=== PATIENT | female | born 1935 | race American Indian/Alaskan Native ===

== ENCOUNTER 2017-12-30 11:32 | Observation (INO) | payer OTHER ==
--- NOTE | 2017-12-30 12:39 | EKG ---
Test Reason : Blood Pressure : / mmHG Vent. Rate : 073 BPM Atrial Rate : 073 BPM P-R Int : 132 ms QRS Dur : 080 ms QT Int : 386 ms P-R-T Axes : 049 -46 022 degrees QTc Int : 425 ms NORMAL SINUS RHYTHM LEFT ANTERIOR FASCICULAR BLOCK SEPTAL INFARCT , AGE UNDETERMINED ABNORMAL ECG WHEN COMPARED WITH ECG OF 02-JUL-2011 09:31, SEPTAL INFARCT IS NOW PRESENT T WAVE VARIATION Confirmed by HINA MCCLURE, DELIA ([id number]) on 12/30/2017 12:39:30 PM Referred By: Confirmed By:DELIA SANTAMARIA MD
[2017-12-30 12:42] LABS: BASO % 0.8 % (0-2.0); HEMATOCRIT 40.7 % (32.4-45.2); LYMPH % 25.5 % (8-40); MCH 32.5 pg (25.7-33.7); MCHC 34.5 g/dl (32.0-36.0); MEAN CELL VOLUME 94.3 fl (80-96); NEUT % 62.7 % (42.8-82.8); RBC 4.31 M/mm3 (3.60-5.2); RDW 13.7 % (11.6-15.6); WHITE BLOOD COUNT 7.2 K/mm3 (4.0-10.0)
[2017-12-30 12:44] LABS: INR 0.88 (0.82-1.09)
[2017-12-30 12:48] LABS: ALBUMIN 3.3 g/dl (3.4-5.0); ANION GAP 5 (8-16); BILIRUBIN,TOTAL 0.7 mg/dL (0.2-1.0); BLOOD UREA NITROGEN 12 mg/dL (7-18); CALCIUM 9.9 mg/dL (8.5-10.1); CHLORIDE 110 mmol/L (98-107); CO2 26 mmol/L (21-32); CREATININE 0.7 mg/dL (0.55-1.02); GLUCOSE,RANDOM 88 mg/dL (74-106); SGPT/ALT 26 U/L (12-78); SODIUM 141 mmol/L (136-145); TOT PROT 6.9 g/dl (6.4-8.2)
[2017-12-30 12:51] LABS: ALK PHOS 112 U/L (45-117)
[2017-12-30 12:52] LABS: MAGNESIUM 2.5 mg/dL (1.8-2.4); POTASSIUM 5.1 mmol/L (3.5-5.1); SGOT/AST 29 U/L (15-37)
[2017-12-30 13:42] LABS: MEAN PLT VOLUME 7.2 fl (7.5-11.1); PLATELET COUNT 298 K/MM3 (134-434)
--- NOTE | 2017-12-30 13:49 | PDOC ---
History of Present Illness - General History Source: Patient Exam Limitations: Language Barrier, Other - History of Present Illness Initial Comments: 12/30/17 14:00 The patient is a 82 year old female, with a significant past medical history of hypertension, worsening dementia, who presents to the emergency department from [facility] s/p syncopal episode. Per EMS patient passed out at [facility]. Unknown whether patient hit her head, has a headache, dizziness, lightheadedness , changes in vision, nausea, vomiting, or any pain. Patients history is limited as she is nonverbal. <Joshua Baxter - Last Filed: 12/30/17 14:55> <Vni Lynn - Last Filed: 12/30/17 15:02> - General Chief Complaint: Syncope/Near Syncope Stated Complaint: SYNCOPE Time Seen by Provider: 12/30/17 11:56 Past History <Joshua Baxter - Last Filed: 12/30/17 14:55> - Suicide/Smoking/Psychosocial Hx Smoking History: Unknown if ever smoked <Vin Lynn - Last Filed: 12/30/17 15:02> - Past Medical History Allergies/Adverse Reactions: Allergies Allergy/AdvReac Type Severity Reaction Status Date / Time No Allergy Information Allergy Verified 12/30/17 11:56 Available Home Medications: Ambulatory Orders Amlodipine Besylate 2.5 mg PO DAILY 12/30/17 Atorvastatin Calcium 20 mg PO HS 12/30/17 Review of Systems - Review of Systems Able to Perform ROS?: No Comments:: 12/30/17 14:00 Unable to perform ROS, as patient is nonverbal. <Joshua Baxter - Last Filed: 12/30/17 14:55> - Review of Systems Able to Perform ROS?: No <Vin Lynn - Last Filed: 12/30/17 15:02> *Physical Exam - Vital Signs Last Vital Signs Temp Pulse Resp BP Pulse Ox 97.5 F L 62 18 134/63 97 12/30/17 11:56 12/30/17 11:56 12/30/17 11:56 12/30/17 11:56 12/30/17 11:56 - Physical Exam Comments: 12/30/17 14:00 GENERAL: The patient is awake, drowsy, and orientedx0, in no acute distress. HEAD: Normal with no signs of trauma. EYES: Pupils equal, round and reactive to light, extraocular movements intact, sclera anicteric, conjunctiva clear with no pallor. ENT: Ears normal, nares patent, oropharynx clear without exudates. Moist mucous membranes. NECK: Normal range of motion, supple without lymphadenopathy, JVD, or masses. LUNGS: Breath sounds equal, clear to auscultation bilaterally. No wheeze/ crackles. HEART: Regular rate and rhythm, normal S1 and S2 without murmur or rub. ABDOMEN: Soft/nontender/nondistended. BS wnl. No guarding or rebound. No palpable masses. No hepatosplenomegaly. EXTREMITIES: Normal range of motion, no edema. No clubbing or cyanosis. No cords, erythema, or tenderness. NEUROLOGICAL: Diffuse nonfocal weakness. Non verbal Cranial nerves II through XII grossly intact. SKIN: Warm, Dry, normal turgor, no rashes or lesions noted. <Joshua Baxter - Last Filed: 12/30/17 14:55> - Vital Signs Last Vital Signs Temp Pulse Resp BP Pulse Ox 97.5 F L 62 18 134/63 97 12/30/17 11:56 12/30/17 11:56 12/30/17 11:56 12/30/17 11:56 12/30/17 11:56 <Vin Lynn - Last Filed: 12/30/17 15:02> Heart Score/ECG Review #1 ECG reviewed & interpreted by me at: 11:47 General ECG Interpretation: Sinus Rhythm, Normal Rate (73), Normal Intervals ( LAFB, QTC 425), No acute ischemic changes (T wave flattening V4-V6) <Vin Lynn - Last Filed: 12/30/17 15:02> ED Treatment Course - LABORATORY CBC & Chemistry Diagram: 12/30/17 12:04 12/30/17 12:04 - ADDITIONAL ORDERS Additional order review: Laboratory Results 12/30/17 12/30/17 12:04 12:04 PT with INR 10.00 INR 0.88 Sodium 141 Potassium 5.1 Chloride 110 H Carbon Dioxide 26 Anion Gap 5 L BUN 12 Creatinine 0.7 Creat Clearance w eGFR > 60 Random Glucose 88 Calcium 9.9 Magnesium 2.5 H Total Bilirubin 0.7 AST 29 ALT 26 Alkaline Phosphatase 112 Creatine Kinase 96 Troponin I 0.03 Total Protein 6.9 Albumin 3.3 L 12/30/17 12:04 RBC 4.31 MCV 94.3 MCHC 34.5 RDW 13.7 MPV 7.2 L Neutrophils % 62.7 Lymphocytes % 25.5 Monocytes % 6.0 Eosinophils % 5.0 H Basophils % 0.8 - RADIOLOGY Radiograph Interpretation: 12/30/17 14:04 EXAM: Head CT INTERPRETED BY: Dr. Handley REVIEWED BY: Dr. Lynn IMPRESSION: No definite interval change from 07/01/[address] No acute intracranial hemorrhage, mass effects or hydrocephalus. No compelling evidence of acute transcortical infarction at this time. MRI is more sensitive in detecting acute infarctions. Generalized, age appropriate volume loss and mild to moderate microvascular ischemic changes in the cerebral white matter. EXAM: CXR INTERPRETED BY: Dr. Reeves REVIEWED BY: Dr. Lynn IMPRESSION: No acute pathology. <Joshua Baxter - Last Filed: 12/30/17 14:55> - LABORATORY CBC & Chemistry Diagram: 12/30/17 12:04 12/30/17 12:04 - ADDITIONAL ORDERS Additional order review: Laboratory Results 12/30/17 12/30/17 12:04 12:04 PT with INR 10.00 INR 0.88 Sodium 141 Potassium 5.1 Chloride 110 H Carbon Dioxide 26 Anion Gap 5 L BUN 12 Creatinine 0.7 Creat Clearance w eGFR > 60 Random Glucose 88 Calcium 9.9 Magnesium 2.5 H Total Bilirubin 0.7 AST 29 ALT 26 Alkaline Phosphatase 112 Creatine Kinase 96 Troponin I 0.03 Total Protein 6.9 Albumin 3.3 L 12/30/17 12:04 RBC 4.31 MCV 94.3 MCHC 34.5 RDW 13.7 MPV 7.2 L Neutrophils % 62.7 Lymphocytes % 25.5 Monocytes % 6.0 Eosinophils % 5.0 H Basophils % 0.8 - RADIOLOGY Radiology Studies Ordered: Category Date Time Status HEAD CT WITHOUT CONTRAST [CT] Stat CT Scan 12/30/17 12:28 Taken CHEST X-RAY PORTABLE* [RAD] Stat Radiology 12/30/17 11:57 Completed <Vin Lynn - Last Filed: 12/30/17 15:02> Medical Decision Making - Medical Decision Making 12/30/17 14:56 First call placed to Dr. Reed at 14:54. Case discussed at this time. Will admit to Tele Obs under Dr. Reed. <Joshua Baxter - Last Filed: 12/30/17 14:55> - Medical Decision Making 12/30/17 14:02 A portion of this note was documented by scribe services under my direction. I have reviewed the details of the note, within reason, and agree with the documentation with the following case summary and management plan written by me. 82-year-old female with unclear medical history brought from [facility] for near syncope. Seeking official signout/documentation from the residential at this time, no prior records in our system, patient is nonverbal. Initial workup including labs, EKG, CT head, and chest x-ray all showed no acute abnormalities. Pending urinalysis, we'll straight catheter to rule out UTI. Patient presenting with nonspecific generalized weakness/lightheadedness, question whether there is altered mental status. Attempting to obtain baseline from staff/family, but no response thus far. 12/30/17 15:00 UA normal. Given near syncope, will place on tele obs for cardiac monitoring. Accepted for obs tele by Dr. Reed, admitting for [facility]. <Vin Lynn - Last Filed: 12/30/17 15:02> *DC/Admit/Observation/Transfer - Attestations Scribe Attestion: 12/30/17 14:01 Documentation prepared by Joshua Baxter, acting as medical doctor md/medical director for Vin Lynn MD. <Joshua Baxter - Last Filed: 12/30/17 14:55> - Discharge Dispostion Admit: Yes <Vin Lynn - Last Filed: 12/30/17 15:02> Diagnosis at time of Disposition: Lightheaded - Referrals Referrals: Robert Cifuentes [Primary Care Provider] - - Patient Instructions - Post Discharge Activity
[2017-12-30 14:35] LABS: URINE APPEARANCE CLOUDY; URINE BILIRUBIN NEGATIVE (<2.0 mg/dL); URINE COLOR LTYELLOW; URINE GLUCOSE (UA) NEGATIVE (NEGATIVE); URINE KETONE NEGATIVE (NEGATIVE); URINE LEUK ESTERASE NEGATIVE (NEGATIVE); URINE NITRITE NEGATIVE (NEGATIVE); URINE PROTEIN NEGATIVE (NEGATIVE); URINE UROBILINOGEN NEGATIVE mg/dL (0.2-1.0)
[2017-12-30] MEDS ORDERED: ACETAMINOPHEN 325 MG TABLET (FP) PO PRN (17:13)
--- NOTE | 2017-12-30 17:54 | HP ---
Admitting History and Physical - Primary Care Physician PCP: He Reed - Admission Chief Complaint: syncopal History of Present Illness: Er records reviewed/ discussed with er physician. The patient is a 82 year old female, with a significant past medical history of hypertension, worsening dementia, who presents to the emergency department from [facility] s/p syncopal episode. Per EMS patient passed out at [facility]. Unknown whether patient hit her head, has a headache, dizziness, lightheadedness , changes in vision, nausea, vomiting, or any pain. Patients history is limited as she is nonverbal. work up -ve in er pt will be kept for observation. Pt seen in er comfortable. no distress. not speaking History Source: Medical Record Limitations to Obtaining History: Clinical Condition - Smoking History Smoking history: Unknown if ever smoked Home Medications - Allergies Allergies/Adverse Reactions: Allergies Allergy/AdvReac Type Severity Reaction Status Date / Time No Allergy Information Allergy Verified 12/30/17 11:56 Available - Home Medications Home Medications: Ambulatory Orders Amlodipine Besylate 2.5 mg PO DAILY 12/30/17 Atorvastatin Calcium 20 mg PO HS 12/30/17 Review of Systems Unable to obtain ROS, reason: condition Physical Examination Vital Signs: Vital Signs Temperature 97.5 F L 12/30/17 11:56 Pulse Rate 62 12/30/17 11:56 Respiratory Rate 18 12/30/17 11:56 Blood Pressure 134/63 12/30/17 11:56 O2 Sat by Pulse Oximetry (%) 97 12/30/17 11:56 Constitutional: Yes: No Distress, Calm Eyes: Yes: Conjunctiva Clear Neck: Yes: Supple Cardiovascular: Yes: Regular Rate and Rhythm Respiratory: Yes: CTA Bilaterally Gastrointestinal: Yes: Soft Edema: No Neurological: Yes: Other (awake) Labs: CBC, BMP 12/30/17 12:04 12/30/17 12:04 Imaging - Results Chest X-ray: Report Reviewed Cat Scan: Report Reviewed EKG: Report Reviewed Problem List - Problems (1) Syncope Code(s): R55 - SYNCOPE AND COLLAPSE (2) Dementia Code(s): F03.90 - UNSPECIFIED DEMENTIA WITHOUT BEHAVIORAL DISTURBANCE (3) Hypertension Code(s): I10 - ESSENTIAL (PRIMARY) HYPERTENSION Assessment/Plan Monitor on non cardiac tele overnight fall precautions physical therapy dvt prophylaxis add asa check carotid will follow
[2017-12-30] MEDS: ASPIRIN COATED 81 MG TABLET.EC PO SCH (18:10)
[2017-12-30] MEDS ORDERED: ACETAMINOPHEN 325 MG TABLET (FP) ONE (19:46)
[2017-12-30] MEDS ORDERED: ATORVASTATIN CA 20 MG TABLET (FP) PO SCH (22:00)
[2017-12-30] MEDS ORDERED: HEPARIN NA (PORCINE) 5,000 UNITS/ML 1ML VIAL ONE (22:03)
[2017-12-30] MEDS ORDERED: ATORVASTATIN CA 40 MG TABLET (FP) ONE (22:03)
[2017-12-30] MEDS: HEPARIN NA (PORCINE) 5,000 UNITS/ML 1ML VIAL SQ SCH (22:07)
[2017-12-31 00:19] VITALS: BMI 20.7
[2017-12-31 06:56] LABS: EOS % 8.8 % (0-4.5); HEMATOCRIT 36.6 % (32.4-45.2); HEMOGLOBIN 12.8 GM/dL (10.7-15.3); LYMPH % 31.8 % (8-40); MCH 32.5 pg (25.7-33.7); MEAN PLT VOLUME 6.6 fl (7.5-11.1); NEUT % 51.4 % (42.8-82.8); PLATELET COUNT 320 K/MM3 (134-434); RBC 3.94 M/mm3 (3.60-5.2); RDW 13.3 % (11.6-15.6); WHITE BLOOD COUNT 5.6 K/mm3 (4.0-10.0)
[2017-12-31 07:16] LABS: ANION GAP 6 (8-16); BLOOD UREA NITROGEN 15 mg/dL (7-18); CALCIUM 9.8 mg/dL (8.5-10.1); CHLORIDE 112 mmol/L (98-107); CO2 26 mmol/L (21-32); CREATININE 0.8 mg/dL (0.55-1.02); GLUCOSE,RANDOM 103 mg/dL (74-106); POTASSIUM 3.7 mmol/L (3.5-5.1); SGOT/AST 14 U/L (15-37); SGPT/ALT 20 U/L (12-78); SODIUM 144 mmol/L (136-145)
[2017-12-31 07:18] LABS: ALK PHOS 97 U/L (45-117); BILIRUBIN,TOTAL 0.7 mg/dL (0.2-1.0); TOT PROT 5.9 g/dl (6.4-8.2)
[2017-12-31] MEDS ORDERED: amLODIPine BESYLATE 2.5 MG TABLET (FP) PO SCH (10:00)
[2017-12-31] MEDS: HEPARIN NA (PORCINE) 5,000 UNITS/ML 1ML VIAL SQ SCH (11:06)
[2017-12-31] MEDS: ASPIRIN COATED 81 MG TABLET.EC PO SCH (11:06)
--- NOTE | 2017-12-31 12:17 | DS ---
Physical Examination Vital Signs: Vital Signs Temperature 98.2 F 12/31/17 05:05 Pulse Rate 80 12/31/17 08:54 Respiratory Rate 18 12/31/17 08:54 Blood Pressure 144/90 12/31/17 08:54 O2 Sat by Pulse Oximetry (%) 97 12/31/17 03:00 Constitutional: Yes: No Distress Cardiovascular: Yes: Regular Rate and Rhythm Respiratory: Yes: CTA Bilaterally Gastrointestinal: Yes: Normal Bowel Sounds, Soft. No: Tenderness Edema: No Labs: CBC, BMP 12/31/17 06:30 12/31/17 06:30 Discharge Summary Reason For Visit: LIGHTHEADNESS Current Active Problems Dementia (Acute) Hypertension (Acute) Lightheaded (Acute) Syncope (Acute) Hospital Course: Admitted for lightheadedness CT head negative Carotid doppler negative Tele uneventful pt is stable for dc to [place] fall precautions Condition: Good - Instructions Referrals: Robert Cifuentes [Primary Care Provider] - Disposition: LONG-TERM FACILITY - Home Medications Comprehensive Discharge Medication List: Ambulatory Orders Amlodipine Besylate 2.5 mg PO DAILY 12/30/17 Atorvastatin Calcium 20 mg PO HS 12/30/17
[2017-12-31 15:56] VITALS: BP 134/72; PULSE 93; TEMP 98.5
== END 2017-12-31 19:17 ==
LOC: JER 11:32 → JERBED 15:02 → J4W 23:08
PROVIDERS: ADMIT Internal Medicine; ATTEND Internal Medicine
PROC: 3E013GC Introduction of Other Therapeutic Substance into Subcutaneous Tissue, Percutaneous Approach (ICD-10-PCS; principal; 2017-12-30)
DX: R55 Syncope and collapse (principal); R42 Dizziness and giddiness; F03.90 Unspecified dementia, unspecified severity, without behavioral disturbance, psychotic disturbance, mood disturbance, and anxiety; I10 Essential (primary) hypertension
CPT/HCPCS: 36415; 70450-TC; 71045-TC-FY; 80053; 81003; 82550; 83735; 84484; 85025; 85610; 87086; 93005; 93010; 93880-TC; 96372; 99285-25; G0378; J1644

== ENCOUNTER 2023-03-10 17:00 | Inpatient (IN) | payer OTHER ==
[2023-03-10] MEDS ORDERED: FUROSEMIDE 40 MG/4 ML INJECTABLE VIAL ONE (17:48)
[2023-03-10] MEDS: FUROSEMIDE 40 MG/4 ML INJECTABLE VIAL IVPUSH SCH (17:52)
[2023-03-10 17:56] LABS: BASO % 0.8 % (0-2.0); EOS % 14.4 % (0-4.5); HEMATOCRIT 41.5 % (32.4-45.2); HEMOGLOBIN 13.4 GM/dL (10.7-15.3); LYMPH % 13.9 % (8-40); MCH 31.5 pg (25.7-33.7); MCHC 32.2 g/dl (32.0-36.0); MEAN CELL VOLUME 97.8 fl (80-96); MEAN PLT VOLUME 7.7 fl (7.5-11.1); MONO % 8.5 % (3.8-10.2); NEUT % 62.4 % (42.8-82.8); PLATELET COUNT 242 10^3/uL (134-434); RBC 4.24 M/mm3 (3.60-5.2); RDW 13.1 % (11.6-15.6); WHITE BLOOD COUNT 10.4 K/mm3 (4.0-10.0)
[2023-03-10 17:57] LABS: PH,URINE 6.5 (5.0-8.0); URINE APPEARANCE CLEAR; URINE BILIRUBIN NEGATIVE (NEGATIVE); URINE COLOR YELLOW; URINE GLUCOSE (UA) NEGATIVE (NEGATIVE); URINE KETONE NEGATIVE (NEGATIVE); URINE LEUK ESTERASE NEGATIVE (NEGATIVE); URINE NITRITE NEGATIVE (NEGATIVE); URINE PROTEIN NEGATIVE (NEGATIVE); URINE UROBILINOGEN 0.2 mg/dL (0.2-1.0); VENOUS BASE EXCESS 1.6 mmol/L (-2-2); VENOUS O2 SATURATION 95.4 % (70-80); VENOUS PCO2 56.9 mmHg (38-52); VENOUS PH 7.324 (7.310-7.410)
[2023-03-10 18:17] LABS: POTASSIUM 5.1 mmol/L (3.5-5.1)
[2023-03-10 18:19] LABS: CALCIUM 11.5 mg/dL (8.5-10.1)
[2023-03-10 18:20] LABS: ALBUMIN 3.3 g/dl (3.4-5.0); BLOOD UREA NITROGEN 19.4 mg/dL (7-18); MAGNESIUM 2.4 mg/dL (1.8-2.4)
[2023-03-10 18:23] LABS: CREATININE 1.5 mg/dL (0.55-1.3); PHOSPHOROUS 3.1 mg/dL (2.5-4.9)
[2023-03-10] MEDS ORDERED: VANCOMYCIN 1 GM in D5W (PRE-DOCKED) 1,000 MG/250 ML (RESTRICTED TO ID ONLY IVPB ONE (18:23)
[2023-03-10] MEDS ORDERED: CEFEPIME HCL/D5W 2 GM/50 ML BAG IVPB ONE (18:23)
[2023-03-10 18:24] LABS: BILIRUBIN,TOTAL 0.3 mg/dL (0.2-1)
[2023-03-10] MEDS ORDERED: ACETAMINOPHEN 1000 MG/100 ML BAG IVPB ONE (18:25)
[2023-03-10 18:28] LABS: N-TERMINAL BNP 3165.4 pg/ml (5-450)
[2023-03-10 18:30] LABS: LACTIC ACID 2.3 mmol/L (0.4-2.0)
[2023-03-10] MEDS ORDERED: ACETAMINOPHEN INJECTION 100 ML IVPB ONE (18:39)
[2023-03-10] MEDS ORDERED: CEFEPIME 2 GM/100 ML BAG IVPB ONE (18:39)
[2023-03-10] MEDS ORDERED: LORazepam 2 MG/ML SDV VIAL IVPUSH ONE (19:10)
[2023-03-10] MEDS ORDERED: VANCOMYCIN/WATER FOR INJ (PEG) 1,000 MG/200 ML BAG IVPB ONE (19:32)
[2023-03-10 19:59] LABS: ARTERIAL BLD GAS O2 SATURATION 98.3 % (95-98); ARTERIAL BLOOD GAS BASE EXCESS 1.7 mmol/L (-2-2); ARTERIAL BLOOD GAS PO2 129.7 mmHg (80-100); ARTERIAL BLOOD GAS pH 7.332 (7.350-7.450)
[2023-03-10 20:01] LABS: ALLENS TEST POSITIVE; VENT MODE S/T
[2023-03-10 20:02] LABS: VENT RATE 12
[2023-03-10] MEDS ORDERED: morphine CARPU-JECT 8 MG/1 ML DISP.SYRIN IVPUSH ONE (22:11)
[2023-03-11] MEDS ORDERED: morphine CARPU-JECT 2 MG/1 ML DISP.SYRIN IVPUSH ONE (05:37)
[2023-03-11] MEDS ORDERED: ASPIRIN 81 MG CHEWABLE TABLETS PO ONE (05:56)
[2023-03-11] MEDS ORDERED: ATORVASTATIN CA 40 MG TABLET (FP) PO ONE (06:00)
[2023-03-11 10:21] LABS: BASO % 0.3 % (0-2.0); EOS % 7.2 % (0-4.5); HEMATOCRIT 38.7 % (32.4-45.2); HEMOGLOBIN 12.4 GM/dL (10.7-15.3); LYMPH % 9.5 % (8-40); MCH 31.5 pg (25.7-33.7); MCHC 32.1 g/dl (32.0-36.0); MEAN CELL VOLUME 98.1 fl (80-96); MEAN PLT VOLUME 7.2 fl (7.5-11.1); MONO % 7.6 % (3.8-10.2); NEUT % 75.4 % (42.8-82.8); PLATELET COUNT 237 10^3/uL (134-434); RBC 3.95 M/mm3 (3.60-5.2); WHITE BLOOD COUNT 13.6 K/mm3 (4.0-10.0)
[2023-03-11 10:41] LABS: POTASSIUM 4.4 mmol/L (3.5-5.1)
[2023-03-11 10:42] LABS: CALCIUM 11.8 mg/dL (8.5-10.1)
[2023-03-11 10:44] LABS: ALBUMIN 3.5 g/dl (3.4-5.0); MAGNESIUM 2.4 mg/dL (1.8-2.4)
[2023-03-11 10:46] LABS: CREATININE 1.5 mg/dL (0.55-1.3)
[2023-03-11 10:48] LABS: BILIRUBIN,TOTAL 0.6 mg/dL (0.2-1); TOT PROT 7.1 g/dl (6.4-8.2)
[2023-03-11] MEDS: PIPERACILLIN/TAZOB 2.25 GM 2.25 GM in DEXTROSE 5%-WATER - 50 ML IVPB SCH ×2 (12:06→17:19)
[2023-03-11] MEDS: FUROSEMIDE 40 MG/4 ML INJECTABLE VIAL IVPUSH SCH (12:07)
[2023-03-11] MEDS: amLODIPine BESYLATE 5 MG TABLET (FP) PO SCH (12:17)
[2023-03-11] MEDS: METOPROLOL TARTRATE 25 MG TABLET (FP) PO SCH ×2 (13:47→21:16)
[2023-03-11] MEDS: HEPARIN NA (PORCINE) 5,000 UNITS/ML 1ML VIAL SQ SCH (21:13)
[2023-03-11] MEDS ORDERED: ATORVASTATIN CA 20 MG TABLET (FP) PO SCH (22:00)
[2023-03-12] MEDS: PIPERACILLIN/TAZOB 2.25 GM 2.25 GM in DEXTROSE 5%-WATER - 50 ML IVPB SCH ×3 (01:34→17:43)
[2023-03-12 08:20] LABS: BASO % 0.7 % (0-2.0); EOS % 3.1 % (0-4.5); HEMOGLOBIN 12.4 GM/dL (10.7-15.3); MCH 32.1 pg (25.7-33.7); MCHC 32.6 g/dl (32.0-36.0); MEAN CELL VOLUME 98.4 fl (80-96); MEAN PLT VOLUME 7.8 fl (7.5-11.1); MONO % 7.4 % (3.8-10.2); NEUT % 72.8 % (42.8-82.8); PLATELET COUNT 248 10^3/uL (134-434); RBC 3.86 M/mm3 (3.60-5.2); WHITE BLOOD COUNT 9.9 K/mm3 (4.0-10.0)
[2023-03-12 08:48] LABS: ALBUMIN 3.1 g/dl (3.4-5.0); BLOOD UREA NITROGEN 26.8 mg/dL (7-18)
[2023-03-12 08:49] LABS: CALCIUM 11.3 mg/dL (8.5-10.1); TOT PROT 6.5 g/dl (6.4-8.2)
[2023-03-12 08:51] LABS: BILIRUBIN,TOTAL 0.7 mg/dL (0.2-1); CREATININE 1.5 mg/dL (0.55-1.3)
[2023-03-12 08:55] LABS: N-TERMINAL BNP 5563.8 pg/ml (5-450)
[2023-03-12] MEDS: AMINO ACIDS 4.25%/D5W 1,000 ML IV SCH (10:03)
[2023-03-12] MEDS: ASPIRIN COATED 81 MG TABLET.EC PO SCH (10:04)
[2023-03-12] MEDS: METOPROLOL TARTRATE 25 MG TABLET (FP) PO SCH ×2 (10:04→22:04)
[2023-03-12] MEDS: amLODIPine BESYLATE 5 MG TABLET (FP) PO SCH (10:05)
[2023-03-12] MEDS: HEPARIN NA (PORCINE) 5,000 UNITS/ML 1ML VIAL SQ SCH ×2 (10:06→22:03)
[2023-03-12] MEDS: FUROSEMIDE 40 MG/4 ML INJECTABLE VIAL IVPUSH SCH (10:07)
[2023-03-13] MEDS: PIPERACILLIN/TAZOB 2.25 GM 2.25 GM in DEXTROSE 5%-WATER - 50 ML IVPB SCH ×3 (01:07→18:22)
[2023-03-13] MEDS: AMINO ACIDS 4.25%/D5W 1,000 ML IV SCH (11:19)
[2023-03-13] MEDS: HEPARIN NA (PORCINE) 5,000 UNITS/ML 1ML VIAL SQ SCH ×2 (11:20→21:48)
[2023-03-13] MEDS: amLODIPine BESYLATE 5 MG TABLET (FP) PO SCH (11:21)
[2023-03-13] MEDS: ASPIRIN COATED 81 MG TABLET.EC PO SCH (11:22)
[2023-03-13] MEDS: FUROSEMIDE 40 MG/4 ML INJECTABLE VIAL IVPUSH SCH (11:22)
[2023-03-13] MEDS: METOPROLOL TARTRATE 25 MG TABLET (FP) PO SCH ×2 (11:23→21:48)
[2023-03-14] MEDS: PIPERACILLIN/TAZOB 2.25 GM 2.25 GM in DEXTROSE 5%-WATER - 50 ML IVPB SCH ×3 (03:08→18:08)
[2023-03-14] MEDS: FUROSEMIDE 40 MG/4 ML INJECTABLE VIAL IVPUSH SCH (10:05)
[2023-03-14] MEDS: amLODIPine BESYLATE 5 MG TABLET (FP) PO SCH (10:05)
[2023-03-14] MEDS: ASPIRIN COATED 81 MG TABLET.EC PO SCH (10:05)
[2023-03-14] MEDS: HEPARIN NA (PORCINE) 5,000 UNITS/ML 1ML VIAL SQ SCH ×2 (10:06→21:31)
[2023-03-14] MEDS: METOPROLOL TARTRATE 25 MG TABLET (FP) PO SCH ×2 (10:06→21:31)
[2023-03-14] MEDS: LEVALBUTEROL HCL 0.31 MG/3 ML VIAL.NEB IH PRN ×2 (12:44→23:37)
[2023-03-14] MEDS: AMINO ACIDS 4.25%/D5W 1,000 ML IV SCH (12:57)
[2023-03-15] MEDS: PIPERACILLIN/TAZOB 2.25 GM 2.25 GM in DEXTROSE 5%-WATER - 50 ML IVPB SCH ×3 (02:51→17:40)
[2023-03-15] MEDS: LEVALBUTEROL HCL 0.31 MG/3 ML VIAL.NEB IH PRN (08:45)
[2023-03-15] MEDS: FUROSEMIDE 40 MG/4 ML INJECTABLE VIAL IVPUSH SCH (10:01)
[2023-03-15] MEDS: HEPARIN NA (PORCINE) 5,000 UNITS/ML 1ML VIAL SQ SCH ×2 (10:01→21:39)
[2023-03-15] MEDS: ASPIRIN COATED 81 MG TABLET.EC PO SCH (10:01)
[2023-03-15] MEDS: METOPROLOL TARTRATE 25 MG TABLET (FP) PO SCH ×2 (10:01→21:38)
[2023-03-15] MEDS: amLODIPine BESYLATE 5 MG TABLET (FP) PO SCH (10:02)
[2023-03-15 12:02] LABS: BASO % 0.8 % (0-2.0); EOS % 6.2 % (0-4.5); HEMATOCRIT 40.3 % (32.4-45.2); HEMOGLOBIN 13.7 GM/dL (10.7-15.3); MCHC 33.9 g/dl (32.0-36.0); MEAN CELL VOLUME 94.2 fl (80-96); MEAN PLT VOLUME 6.9 fl (7.5-11.1); MONO % 7.5 % (3.8-10.2); NEUT % 62.5 % (42.8-82.8); PLATELET COUNT 273 10^3/uL (134-434); RBC 4.28 M/mm3 (3.60-5.2); RDW 12.6 % (11.6-15.6); WHITE BLOOD COUNT 8.2 K/mm3 (4.0-10.0)
[2023-03-15 12:13] LABS: CHLORIDE 108 mmol/L (98-107); SODIUM 146 mmol/L (136-145)
[2023-03-15 12:15] LABS: BLOOD UREA NITROGEN 24.2 mg/dL (7-18); CO2 34 mmol/L (21-32); GLUCOSE,RANDOM 138 mg/dL (74-106)
[2023-03-15 12:16] LABS: ALBUMIN 3.1 g/dl (3.4-5.0)
[2023-03-15 12:18] LABS: SGOT/AST 42 U/L (15-37); SGPT/ALT 47 U/L (13-61)
[2023-03-15 12:19] LABS: CREATININE 1.2 mg/dL (0.55-1.3)
[2023-03-15 12:20] LABS: TOT PROT 6.8 g/dl (6.4-8.2)
[2023-03-15 12:21] LABS: ALK PHOS 118 U/L (45-117)
[2023-03-15 12:23] LABS: ANION GAP 5 MMOL/L (8-16); POTASSIUM 2.7 mmol/L (3.5-5.1)
[2023-03-15] MEDS: KCL 10 MEQ IVPB 10 MEQ/100 ML INFUS.BAG IVPB SCH ×2 (13:31→15:20)
[2023-03-15] MEDS: AMINO ACIDS 4.25%/D5W 1,000 ML IV SCH (13:31)
[2023-03-15] MEDS: POTASSIUM CHLORIDE TABS 10 MEQ TABLET.ER (FP) PO SCH (13:31)
[2023-03-15] MEDS: LEVALBUTEROL HCL 0.31 MG/3 ML VIAL.NEB IH SCH ×2 (15:03→20:28)
[2023-03-15] MEDS: LORazepam 0.5 MG TABLET PO PRN ×2 (17:40→21:38)
[2023-03-15] MEDS: MELATONIN 1 MG TABLET PO SCH (21:39)
[2023-03-16] MEDS: PIPERACILLIN/TAZOB 2.25 GM 2.25 GM in DEXTROSE 5%-WATER - 50 ML IVPB SCH ×3 (01:20→17:31)
[2023-03-16] MEDS: LEVALBUTEROL HCL 0.31 MG/3 ML VIAL.NEB IH SCH ×3 (08:05→21:14)
[2023-03-16 08:34] LABS: BASO % 0.6 % (0-2.0); EOS % 2.4 % (0-4.5); HEMATOCRIT 37.8 % (32.4-45.2); HEMOGLOBIN 12.8 GM/dL (10.7-15.3); LYMPH % 17.7 % (8-40); MEAN CELL VOLUME 94.2 fl (80-96); MONO % 7.9 % (3.8-10.2); NEUT % 71.4 % (42.8-82.8); PLATELET COUNT 237 10^3/uL (134-434); RBC 4.02 M/mm3 (3.60-5.2); RDW 12.7 % (11.6-15.6); WHITE BLOOD COUNT 8.6 K/mm3 (4.0-10.0)
[2023-03-16 09:19] LABS: CHLORIDE 109 mmol/L (98-107); SODIUM 144 mmol/L (136-145)
[2023-03-16 09:21] LABS: CALCIUM 11.4 mg/dL (8.5-10.1)
[2023-03-16 09:22] LABS: ALBUMIN 2.8 g/dl (3.4-5.0); BLOOD UREA NITROGEN 21.4 mg/dL (7-18); CO2 30 mmol/L (21-32); GLUCOSE,RANDOM 136 mg/dL (74-106)
[2023-03-16 09:25] LABS: SGOT/AST 34 U/L (15-37); SGPT/ALT 47 U/L (13-61)
[2023-03-16 09:27] LABS: BILIRUBIN,TOTAL 0.7 mg/dL (0.2-1); TOT PROT 6.3 g/dl (6.4-8.2)
[2023-03-16 09:28] LABS: ALK PHOS 110 U/L (45-117)
[2023-03-16 09:33] LABS: ANION GAP 5 MMOL/L (8-16); POTASSIUM 2.9 mmol/L (3.5-5.1)
[2023-03-16] MEDS: AMINO ACIDS 4.25%/D5W 1,000 ML IV SCH ×2 (10:41→19:18)
[2023-03-16] MEDS: amLODIPine BESYLATE 5 MG TABLET (FP) PO SCH (10:59)
[2023-03-16] MEDS: ASPIRIN COATED 81 MG TABLET.EC PO SCH (10:59)
[2023-03-16] MEDS: HEPARIN NA (PORCINE) 5,000 UNITS/ML 1ML VIAL SQ SCH (11:00)
[2023-03-16] MEDS: FUROSEMIDE 40 MG/4 ML INJECTABLE VIAL IVPUSH SCH (11:00)
[2023-03-16] MEDS: METOPROLOL TARTRATE 25 MG TABLET (FP) PO SCH (11:02)
[2023-03-16] MEDS: POTASSIUM CHLORIDE TABS 10 MEQ TABLET.ER (FP) PO SCH ×2 (11:44→12:30)
[2023-03-16] MEDS: KCL 10 MEQ IVPB 10 MEQ/100 ML INFUS.BAG IVPB SCH ×2 (12:30→13:37)
[2023-03-17] MEDS: MELATONIN 1 MG TABLET PO SCH ×2 (00:06→21:07)
[2023-03-17] MEDS: LORazepam 0.5 MG TABLET PO PRN ×2 (00:06→21:07)
[2023-03-17] MEDS: METOPROLOL TARTRATE 25 MG TABLET (FP) PO SCH ×3 (00:06→21:07)
[2023-03-17] MEDS: HEPARIN NA (PORCINE) 5,000 UNITS/ML 1ML VIAL SQ SCH ×3 (00:07→21:07)
[2023-03-17] MEDS: POTASSIUM CHLORIDE TABS 10 MEQ TABLET.ER (FP) PO SCH ×3 (00:07→21:08)
[2023-03-17] MEDS: PIPERACILLIN/TAZOB 2.25 GM 2.25 GM in DEXTROSE 5%-WATER - 50 ML IVPB SCH ×3 (02:40→17:24)
[2023-03-17] MEDS: LEVALBUTEROL HCL 0.31 MG/3 ML VIAL.NEB IH SCH ×3 (08:11→20:29)
[2023-03-17] MEDS: amLODIPine BESYLATE 5 MG TABLET (FP) PO SCH (09:33)
[2023-03-17] MEDS: ASPIRIN COATED 81 MG TABLET.EC PO SCH (09:33)
[2023-03-17] MEDS: FUROSEMIDE 40 MG/4 ML INJECTABLE VIAL IVPUSH SCH (09:34)
[2023-03-17] MEDS: AMINO ACIDS 4.25%/D5W 1,000 ML IV SCH (09:34)
[2023-03-17 09:59] LABS: ALBUMIN 2.8 g/dl (3.4-5.0); BLOOD UREA NITROGEN 27.6 mg/dL (7-18)
[2023-03-17 10:00] LABS: TOT PROT 6.4 g/dl (6.4-8.2)
[2023-03-17 10:01] LABS: CALCIUM 11.8 mg/dL (8.5-10.1)
[2023-03-17 10:08] LABS: BILIRUBIN,TOTAL 0.8 mg/dL (0.2-1)
[2023-03-17] MEDS: KCL 10 MEQ IVPB 10 MEQ/100 ML INFUS.BAG IVPB SCH ×3 (11:50→16:48)
[2023-03-18] MEDS: PIPERACILLIN/TAZOB 2.25 GM 2.25 GM in DEXTROSE 5%-WATER - 50 ML IVPB SCH ×3 (02:36→18:29)
[2023-03-18] MEDS: LEVALBUTEROL HCL 0.31 MG/3 ML VIAL.NEB IH SCH ×3 (08:19→20:02)
[2023-03-18 08:23] LABS: BASO % 0.6 % (0-2.0); EOS % 9.4 % (0-4.5); HEMATOCRIT 40.8 % (32.4-45.2); HEMOGLOBIN 13.4 GM/dL (10.7-15.3); LYMPH % 18.6 % (8-40); MCH 31.4 pg (25.7-33.7); MCHC 32.7 g/dl (32.0-36.0); MEAN CELL VOLUME 95.9 fl (80-96); MEAN PLT VOLUME 7.8 fl (7.5-11.1); MONO % 8.9 % (3.8-10.2); NEUT % 62.5 % (42.8-82.8); PLATELET COUNT 283 10^3/uL (134-434); RBC 4.26 M/mm3 (3.60-5.2); RDW 12.7 % (11.6-15.6)
[2023-03-18 08:34] LABS: POTASSIUM 3.3 mmol/L (3.5-5.1)
[2023-03-18 08:39] LABS: ALBUMIN 2.6 g/dl (3.4-5.0); BLOOD UREA NITROGEN 25.4 mg/dL (7-18); CALCIUM 11.7 mg/dL (8.5-10.1); MAGNESIUM 2.3 mg/dL (1.8-2.4)
[2023-03-18 08:42] LABS: CREATININE 1.1 mg/dL (0.55-1.3)
[2023-03-18 08:44] LABS: BILIRUBIN,TOTAL 0.8 mg/dL (0.2-1); TOT PROT 6.3 g/dl (6.4-8.2)
[2023-03-18] MEDS: amLODIPine BESYLATE 5 MG TABLET (FP) PO SCH (09:39)
[2023-03-18] MEDS: ASPIRIN COATED 81 MG TABLET.EC PO SCH (09:41)
[2023-03-18] MEDS: METOPROLOL TARTRATE 25 MG TABLET (FP) PO SCH ×2 (09:41→21:51)
[2023-03-18] MEDS: POTASSIUM CHLORIDE TABS 10 MEQ TABLET.ER (FP) PO SCH ×2 (09:43→21:50)
[2023-03-18] MEDS: HEPARIN NA (PORCINE) 5,000 UNITS/ML 1ML VIAL SQ SCH ×2 (09:44→21:51)
[2023-03-18] MEDS: AMINO ACIDS 4.25%/D5W 1,000 ML IV SCH (09:44)
[2023-03-18] MEDS: FUROSEMIDE 40 MG/4 ML INJECTABLE VIAL IVPUSH SCH (09:45)
[2023-03-18] MEDS: methylPREDNISolone NA SUCC 40 MG/1 ML VIAL IVPUSH SCH (13:11)
[2023-03-18] MEDS: KCL 10 MEQ IVPB 10 MEQ/100 ML INFUS.BAG IVPB SCH ×2 (13:12→14:35)
[2023-03-18] MEDS: MELATONIN 1 MG TABLET PO SCH (21:50)
[2023-03-18] MEDS: LORazepam 0.5 MG TABLET PO PRN (21:51)
[2023-03-19] MEDS: PIPERACILLIN/TAZOB 2.25 GM 2.25 GM in DEXTROSE 5%-WATER - 50 ML IVPB SCH ×3 (03:00→18:58)
[2023-03-19] MEDS: LEVALBUTEROL HCL 0.31 MG/3 ML VIAL.NEB IH SCH ×3 (08:05→21:26)
[2023-03-19 08:45] LABS: BASO % 0.2 % (0-2.0); HEMOGLOBIN 14.1 GM/dL (10.7-15.3); LYMPH % 11.7 % (8-40); MCH 30.8 pg (25.7-33.7); MEAN CELL VOLUME 96.5 fl (80-96); MEAN PLT VOLUME 8.3 fl (7.5-11.1); MONO % 7.8 % (3.8-10.2); NEUT % 80.3 % (42.8-82.8); PLATELET COUNT 359 10^3/uL (134-434); RBC 4.56 M/mm3 (3.60-5.2); RDW 12.8 % (11.6-15.6); WHITE BLOOD COUNT 12.3 K/mm3 (4.0-10.0)
[2023-03-19 09:05] LABS: ALBUMIN 2.7 g/dl (3.4-5.0); BLOOD UREA NITROGEN 35.7 mg/dL (7-18)
[2023-03-19 09:08] LABS: CREATININE 1.2 mg/dL (0.55-1.3)
[2023-03-19 09:09] LABS: BILIRUBIN,TOTAL 0.5 mg/dL (0.2-1)
[2023-03-19 09:10] LABS: TOT PROT 6.9 g/dl (6.4-8.2)
[2023-03-19] MEDS: METOPROLOL TARTRATE 25 MG TABLET (FP) PO SCH ×2 (09:35→21:54)
[2023-03-19] MEDS: ASPIRIN COATED 81 MG TABLET.EC PO SCH (09:35)
[2023-03-19] MEDS: amLODIPine BESYLATE 5 MG TABLET (FP) PO SCH (09:35)
[2023-03-19] MEDS: FUROSEMIDE 40 MG/4 ML INJECTABLE VIAL IVPUSH SCH (09:37)
[2023-03-19] MEDS: POTASSIUM CHLORIDE TABS 10 MEQ TABLET.ER (FP) PO SCH ×2 (09:37→21:54)
[2023-03-19] MEDS: methylPREDNISolone NA SUCC 40 MG/1 ML VIAL IVPUSH SCH (09:37)
[2023-03-19] MEDS: HEPARIN NA (PORCINE) 5,000 UNITS/ML 1ML VIAL SQ SCH ×2 (09:37→21:54)
[2023-03-19] MEDS: AMINO ACIDS 4.25%/D5W 1,000 ML IV SCH (09:46)
[2023-03-19] MEDS: MELATONIN 1 MG TABLET PO SCH (21:54)
[2023-03-20] MEDS: PIPERACILLIN/TAZOB 2.25 GM 2.25 GM in DEXTROSE 5%-WATER - 50 ML IVPB SCH ×3 (03:06→17:19)
[2023-03-20] MEDS: LEVALBUTEROL HCL 0.31 MG/3 ML VIAL.NEB IH SCH ×3 (08:40→20:44)
[2023-03-20 08:53] LABS: BASO % 0.3 % (0-2.0); EOS % 0.2 % (0-4.5); HEMATOCRIT 44.5 % (32.4-45.2); HEMOGLOBIN 14.3 GM/dL (10.7-15.3); LYMPH % 9.9 % (8-40); MCH 31.4 pg (25.7-33.7); MCHC 32.2 g/dl (32.0-36.0); MEAN CELL VOLUME 97.5 fl (80-96); MEAN PLT VOLUME 8.4 fl (7.5-11.1); MONO % 9.3 % (3.8-10.2); NEUT % 80.3 % (42.8-82.8); PLATELET COUNT 385 10^3/uL (134-434); RBC 4.56 M/mm3 (3.60-5.2); RDW 12.6 % (11.6-15.6); WHITE BLOOD COUNT 13.5 K/mm3 (4.0-10.0)
[2023-03-20 09:01] LABS: POTASSIUM 3.9 mmol/L (3.5-5.1)
[2023-03-20 09:05] LABS: ALBUMIN 2.7 g/dl (3.4-5.0); BLOOD UREA NITROGEN 39.3 mg/dL (7-18); CALCIUM 13.2 mg/dL (8.5-10.1)
[2023-03-20 09:08] LABS: CREATININE 1.2 mg/dL (0.55-1.3)
[2023-03-20 09:10] LABS: BILIRUBIN,TOTAL 0.5 mg/dL (0.2-1); TOT PROT 6.9 g/dl (6.4-8.2)
[2023-03-20] MEDS ORDERED: SODIUM CHLORIDE 0.45% 1,000 ML IV SCH (09:15)
[2023-03-20] MEDS: ASPIRIN COATED 81 MG TABLET.EC PO SCH (09:18)
[2023-03-20] MEDS: amLODIPine BESYLATE 5 MG TABLET (FP) PO SCH (09:18)
[2023-03-20] MEDS: POTASSIUM CHLORIDE TABS 10 MEQ TABLET.ER (FP) PO SCH ×2 (09:19→21:54)
[2023-03-20] MEDS: METOPROLOL TARTRATE 25 MG TABLET (FP) PO SCH ×2 (09:19→21:54)
[2023-03-20] MEDS: FUROSEMIDE 40 MG/4 ML INJECTABLE VIAL IVPUSH SCH (09:19)
[2023-03-20] MEDS: methylPREDNISolone NA SUCC 40 MG/1 ML VIAL IVPUSH SCH (09:19)
[2023-03-20] MEDS: HEPARIN NA (PORCINE) 5,000 UNITS/ML 1ML VIAL SQ SCH ×2 (09:20→21:53)
[2023-03-20 18:43] VITALS: BMI 28.8
[2023-03-20] MEDS: DEXTROSE 5%-WATER - 1,000 ML IV SCH (19:21)
[2023-03-20] MEDS: MELATONIN 1 MG TABLET PO SCH (21:54)
[2023-03-21] MEDS: PIPERACILLIN/TAZOB 2.25 GM 2.25 GM in DEXTROSE 5%-WATER - 50 ML IVPB SCH ×3 (03:22→17:48)
[2023-03-21 07:04] LABS: BASO % 0.4 % (0-2.0); EOS % 0.1 % (0-4.5); HEMATOCRIT 43.1 % (32.4-45.2); HEMOGLOBIN 14.1 GM/dL (10.7-15.3); LYMPH % 14.2 % (8-40); MCH 31.5 pg (25.7-33.7); MCHC 32.7 g/dl (32.0-36.0); MEAN CELL VOLUME 96.2 fl (80-96); MEAN PLT VOLUME 7.9 fl (7.5-11.1); MONO % 11.3 % (3.8-10.2); PLATELET COUNT 390 10^3/uL (134-434); RBC 4.48 M/mm3 (3.60-5.2); RDW 13.3 % (11.6-15.6); WHITE BLOOD COUNT 12.6 K/mm3 (4.0-10.0)
[2023-03-21 07:27] LABS: POTASSIUM 4.1 mmol/L (3.5-5.1)
[2023-03-21 07:43] LABS: ALBUMIN 2.6 g/dl (3.4-5.0)
[2023-03-21 07:44] LABS: CALCIUM 13.3 mg/dL (8.5-10.1)
[2023-03-21 07:45] LABS: BLOOD UREA NITROGEN 33.6 mg/dL (7-18)
[2023-03-21 07:48] LABS: CREATININE 1.2 mg/dL (0.55-1.3)
[2023-03-21 07:49] LABS: BILIRUBIN,TOTAL 0.5 mg/dL (0.2-1); TOT PROT 6.6 g/dl (6.4-8.2)
[2023-03-21] MEDS: LEVALBUTEROL HCL 0.31 MG/3 ML VIAL.NEB IH SCH ×3 (08:08→20:06)
[2023-03-21] MEDS: POTASSIUM CHLORIDE TABS 10 MEQ TABLET.ER (FP) PO SCH ×2 (10:42→22:36)
[2023-03-21] MEDS: HEPARIN NA (PORCINE) 5,000 UNITS/ML 1ML VIAL SQ SCH ×2 (10:42→22:35)
[2023-03-21] MEDS: methylPREDNISolone NA SUCC 40 MG/1 ML VIAL IVPUSH SCH (10:42)
[2023-03-21] MEDS: METOPROLOL TARTRATE 25 MG TABLET (FP) PO SCH ×2 (10:43→22:35)
[2023-03-21] MEDS: ASPIRIN COATED 81 MG TABLET.EC PO SCH (10:43)
[2023-03-21] MEDS: CINACALCET HCL 30 MG TAB (FP) PO SCH ×2 (10:45→22:41)
[2023-03-21] MEDS: FUROSEMIDE 40 MG/4 ML INJECTABLE VIAL IVPUSH SCH (11:43)
[2023-03-21] MEDS: amLODIPine BESYLATE 5 MG TABLET (FP) PO SCH (11:44)
[2023-03-21] MEDS: POLYETHYLENE GLYCOL (HEALTHYLAX) 3350 17 GM PACKET PO SCH (16:48)
[2023-03-21] MEDS: LORazepam 0.5 MG TABLET PO PRN (22:37)
[2023-03-21] MEDS: MELATONIN 1 MG TABLET PO SCH (22:38)
[2023-03-22] MEDS: DEXTROSE 5%-WATER - 1,000 ML IV SCH ×2 (01:17→14:18)
[2023-03-22] MEDS: PIPERACILLIN/TAZOB 2.25 GM 2.25 GM in DEXTROSE 5%-WATER - 50 ML IVPB SCH ×3 (01:18→17:58)
[2023-03-22 08:17] LABS: BASO % 0.6 % (0-2.0); EOS % 0.2 % (0-4.5); HEMATOCRIT 45.9 % (32.4-45.2); HEMOGLOBIN 14.8 GM/dL (10.7-15.3); LYMPH % 13.7 % (8-40); MCH 31.3 pg (25.7-33.7); MCHC 32.3 g/dl (32.0-36.0); MEAN CELL VOLUME 96.8 fl (80-96); MEAN PLT VOLUME 8.6 fl (7.5-11.1); MONO % 11.2 % (3.8-10.2); NEUT % 74.3 % (42.8-82.8); PLATELET COUNT 457 10^3/uL (134-434); RBC 4.74 M/mm3 (3.60-5.2); RDW 12.4 % (11.6-15.6); WHITE BLOOD COUNT 12.6 K/mm3 (4.0-10.0)
[2023-03-22] MEDS: LEVALBUTEROL HCL 0.31 MG/3 ML VIAL.NEB IH SCH ×3 (08:20→21:17)
[2023-03-22 08:24] LABS: POTASSIUM 4.4 mmol/L (3.5-5.1)
[2023-03-22 08:39] LABS: BLOOD UREA NITROGEN 37.6 mg/dL (7-18); CALCIUM 12.7 mg/dL (8.5-10.1)
[2023-03-22 08:40] LABS: ALBUMIN 2.7 g/dl (3.4-5.0)
[2023-03-22 08:41] LABS: TOT PROT 7.1 g/dl (6.4-8.2)
[2023-03-22 08:42] LABS: CREATININE 1.2 mg/dL (0.55-1.3)
[2023-03-22 08:44] LABS: BILIRUBIN,TOTAL 0.8 mg/dL (0.2-1)
[2023-03-22] MEDS: methylPREDNISolone NA SUCC 40 MG/1 ML VIAL IVPUSH SCH (09:45)
[2023-03-22] MEDS: amLODIPine BESYLATE 5 MG TABLET (FP) PO SCH (09:46)
[2023-03-22] MEDS: FUROSEMIDE 40 MG/4 ML INJECTABLE VIAL IVPUSH SCH (09:46)
[2023-03-22] MEDS: HEPARIN NA (PORCINE) 5,000 UNITS/ML 1ML VIAL SQ SCH ×2 (09:46→22:37)
[2023-03-22] MEDS: ASPIRIN COATED 81 MG TABLET.EC PO SCH (09:46)
[2023-03-22] MEDS: POLYETHYLENE GLYCOL (HEALTHYLAX) 3350 17 GM PACKET PO SCH (09:46)
[2023-03-22] MEDS: POTASSIUM CHLORIDE TABS 10 MEQ TABLET.ER (FP) PO SCH ×2 (09:47→23:26)
[2023-03-22] MEDS: METOPROLOL TARTRATE 25 MG TABLET (FP) PO SCH ×2 (09:47→22:37)
[2023-03-22] MEDS: CINACALCET HCL 30 MG TAB (FP) PO SCH ×2 (09:52→22:58)
[2023-03-22] MEDS: LORazepam 0.5 MG TABLET PO PRN ×2 (12:46→22:37)
[2023-03-22] MEDS: CALCITONIN - SALMON SYNTHETIC 400 UNIT/2 ML VIAL SQ SCH (14:17)
[2023-03-22] MEDS: MELATONIN 1 MG TABLET PO SCH (22:37)
[2023-03-23] MEDS: PIPERACILLIN/TAZOB 2.25 GM 2.25 GM in DEXTROSE 5%-WATER - 50 ML IVPB SCH ×3 (04:33→17:45)
[2023-03-23] MEDS: CALCITONIN - SALMON SYNTHETIC 400 UNIT/2 ML VIAL SQ SCH (04:34)
[2023-03-23] MEDS: LEVALBUTEROL HCL 0.31 MG/3 ML VIAL.NEB IH SCH ×3 (09:18→21:00)
[2023-03-23] MEDS: methylPREDNISolone NA SUCC 40 MG/1 ML VIAL IVPUSH SCH (10:28)
[2023-03-23] MEDS: HEPARIN NA (PORCINE) 5,000 UNITS/ML 1ML VIAL SQ SCH ×2 (10:28→22:10)
[2023-03-23] MEDS: FUROSEMIDE 40 MG/4 ML INJECTABLE VIAL IVPUSH SCH (10:28)
[2023-03-23] MEDS: amLODIPine BESYLATE 5 MG TABLET (FP) PO SCH (10:28)
[2023-03-23] MEDS: CINACALCET HCL 30 MG TAB (FP) PO SCH ×2 (10:29→22:09)
[2023-03-23] MEDS: POTASSIUM CHLORIDE TABS 10 MEQ TABLET.ER (FP) PO SCH ×2 (10:29→22:09)
[2023-03-23] MEDS: METOPROLOL TARTRATE 25 MG TABLET (FP) PO SCH ×2 (10:29→22:08)
[2023-03-23] MEDS: ASPIRIN COATED 81 MG TABLET.EC PO SCH (10:29)
[2023-03-23] MEDS: POLYETHYLENE GLYCOL (HEALTHYLAX) 3350 17 GM PACKET PO SCH (11:00)
[2023-03-23] MEDS: DEXTROSE 5%-WATER - 1,000 ML IV SCH (17:45)
[2023-03-23] MEDS: MELATONIN 1 MG TABLET PO SCH (22:08)
[2023-03-23] MEDS: LORazepam 0.5 MG TABLET PO PRN (22:09)
[2023-03-24] MEDS: PIPERACILLIN/TAZOB 2.25 GM 2.25 GM in DEXTROSE 5%-WATER - 50 ML IVPB SCH ×3 (05:19→18:27)
[2023-03-24] MEDS: LEVALBUTEROL HCL 0.31 MG/3 ML VIAL.NEB IH SCH ×3 (08:00→20:05)
[2023-03-24] MEDS: methylPREDNISolone NA SUCC 40 MG/1 ML VIAL IVPUSH SCH (10:55)
[2023-03-24] MEDS: HEPARIN NA (PORCINE) 5,000 UNITS/ML 1ML VIAL SQ SCH ×2 (10:55→22:11)
[2023-03-24] MEDS: POTASSIUM CHLORIDE TABS 10 MEQ TABLET.ER (FP) PO SCH ×2 (10:56→22:12)
[2023-03-24] MEDS: METOPROLOL TARTRATE 25 MG TABLET (FP) PO SCH ×2 (10:56→22:12)
[2023-03-24] MEDS: ASPIRIN COATED 81 MG TABLET.EC PO SCH (10:56)
[2023-03-24] MEDS: amLODIPine BESYLATE 5 MG TABLET (FP) PO SCH (10:56)
[2023-03-24] MEDS: FUROSEMIDE 40 MG/4 ML INJECTABLE VIAL IVPUSH SCH (10:56)
[2023-03-24] MEDS: CINACALCET HCL 30 MG TAB (FP) PO SCH ×2 (10:57→22:12)
[2023-03-24] MEDS: POLYETHYLENE GLYCOL (HEALTHYLAX) 3350 17 GM PACKET PO SCH (10:57)
[2023-03-24] MEDS ORDERED: CALCITONIN - SALMON SYNTHETIC 400 UNIT/2 ML VIAL IM SCH (14:30)
[2023-03-24] MEDS ORDERED: PIPERACILLIN/TAZOBACTAM 2.25 GM VIAL IVPB ONE (18:15)
[2023-03-24] MEDS: DEXTROSE 5%-WATER - 1,000 ML IV SCH (18:28)
[2023-03-24] MEDS ORDERED: DEXTROSE 5% IVPB ONE (22:00)
[2023-03-24] MEDS ORDERED: WATER IVPB ONE (22:00)
[2023-03-24] MEDS ORDERED: PAMIDRONATE DISODIUM IVPB ONE (22:00)
[2023-03-24] MEDS: MELATONIN 1 MG TABLET PO SCH (22:12)
[2023-03-25] MEDS: PIPERACILLIN/TAZOB 2.25 GM 2.25 GM in DEXTROSE 5%-WATER - 50 ML IVPB SCH ×3 (01:31→18:13)
[2023-03-25 07:57] LABS: POTASSIUM 4.3 mmol/L (3.5-5.1)
[2023-03-25] MEDS: LEVALBUTEROL HCL 0.31 MG/3 ML VIAL.NEB IH SCH ×3 (08:00→21:10)
[2023-03-25 08:11] LABS: CALCIUM 12.5 mg/dL (8.5-10.1)
[2023-03-25 08:12] LABS: ALBUMIN 2.6 g/dl (3.4-5.0); BASO % 0.2 % (0-2.0); BLOOD UREA NITROGEN 36.8 mg/dL (7-18); EOS % 0.2 % (0-4.5); HEMATOCRIT 47.2 % (32.4-45.2); HEMOGLOBIN 15.4 GM/dL (10.7-15.3); LYMPH % 10.7 % (8-40); MCH 31.6 pg (25.7-33.7); MCHC 32.5 g/dl (32.0-36.0); MEAN PLT VOLUME 8.1 fl (7.5-11.1); MONO % 7.2 % (3.8-10.2); NEUT % 81.7 % (42.8-82.8); PLATELET COUNT 414 10^3/uL (134-434); RBC 4.87 M/mm3 (3.60-5.2); RDW 12.9 % (11.6-15.6); WHITE BLOOD COUNT 15.6 K/mm3 (4.0-10.0)
[2023-03-25 08:15] LABS: CREATININE 1.4 mg/dL (0.55-1.3)
[2023-03-25 08:16] LABS: BILIRUBIN,TOTAL 0.7 mg/dL (0.2-1); TOT PROT 6.5 g/dl (6.4-8.2)
[2023-03-25] MEDS: HEPARIN NA (PORCINE) 5,000 UNITS/ML 1ML VIAL SQ SCH ×2 (10:42→21:46)
[2023-03-25] MEDS: FUROSEMIDE 40 MG/4 ML INJECTABLE VIAL IVPUSH SCH (10:42)
[2023-03-25] MEDS: ASPIRIN COATED 81 MG TABLET.EC PO SCH (10:43)
[2023-03-25] MEDS: methylPREDNISolone NA SUCC 40 MG/1 ML VIAL IVPUSH SCH (10:43)
[2023-03-25] MEDS: POTASSIUM CHLORIDE TABS 10 MEQ TABLET.ER (FP) PO SCH ×2 (10:43→21:46)
[2023-03-25] MEDS: amLODIPine BESYLATE 5 MG TABLET (FP) PO SCH (10:43)
[2023-03-25] MEDS: POLYETHYLENE GLYCOL (HEALTHYLAX) 3350 17 GM PACKET PO SCH (10:43)
[2023-03-25] MEDS: CINACALCET HCL 30 MG TAB (FP) PO SCH ×2 (10:43→21:46)
[2023-03-25] MEDS: METOPROLOL TARTRATE 25 MG TABLET (FP) PO SCH ×2 (10:44→21:46)
[2023-03-25] MEDS: DEXTROSE 5%-WATER - 1,000 ML IV SCH (18:13)
[2023-03-25] MEDS: MELATONIN 1 MG TABLET PO SCH (21:46)
[2023-03-26] MEDS: PIPERACILLIN/TAZOB 2.25 GM 2.25 GM in DEXTROSE 5%-WATER - 50 ML IVPB SCH ×2 (02:52→10:15)
[2023-03-26] MEDS: LEVALBUTEROL HCL 0.31 MG/3 ML VIAL.NEB IH SCH ×3 (08:20→20:20)
[2023-03-26] MEDS: POLYETHYLENE GLYCOL (HEALTHYLAX) 3350 17 GM PACKET PO SCH (10:14)
[2023-03-26] MEDS: CINACALCET HCL 30 MG TAB (FP) PO SCH ×2 (10:14→21:57)
[2023-03-26] MEDS: ASPIRIN COATED 81 MG TABLET.EC PO SCH (10:14)
[2023-03-26] MEDS: FUROSEMIDE 40 MG/4 ML INJECTABLE VIAL IVPUSH SCH (10:14)
[2023-03-26] MEDS: METOPROLOL TARTRATE 25 MG TABLET (FP) PO SCH ×2 (10:14→21:56)
[2023-03-26] MEDS: amLODIPine BESYLATE 5 MG TABLET (FP) PO SCH (10:14)
[2023-03-26] MEDS: POTASSIUM CHLORIDE TABS 10 MEQ TABLET.ER (FP) PO SCH ×2 (10:15→21:56)
[2023-03-26] MEDS: HEPARIN NA (PORCINE) 5,000 UNITS/ML 1ML VIAL SQ SCH ×2 (10:15→21:56)
[2023-03-26] MEDS: methylPREDNISolone NA SUCC 40 MG/1 ML VIAL IVPUSH SCH (10:15)
[2023-03-26] MEDS: DEXTROSE 5%-WATER - 1,000 ML IV SCH (18:59)
[2023-03-26] MEDS: MELATONIN 1 MG TABLET PO SCH (21:56)
[2023-03-27] MEDS: LEVALBUTEROL HCL 0.31 MG/3 ML VIAL.NEB IH SCH ×3 (07:50→19:38)
[2023-03-27 08:55] LABS: BASO % 0.2 % (0-2.0); EOS % 0.2 % (0-4.5); HEMATOCRIT 49.3 % (32.4-45.2); HEMOGLOBIN 16.4 GM/dL (10.7-15.3); LYMPH % 11.6 % (8-40); MCH 31.9 pg (25.7-33.7); MCHC 33.3 g/dl (32.0-36.0); MEAN CELL VOLUME 95.7 fl (80-96); PLATELET COUNT 518 10^3/uL (134-434); RBC 5.16 M/mm3 (3.60-5.2); RDW 13.1 % (11.6-15.6); WHITE BLOOD COUNT 18.1 K/mm3 (4.0-10.0)
[2023-03-27 09:16] LABS: POTASSIUM 5.1 mmol/L (3.5-5.1)
[2023-03-27 09:17] LABS: ALBUMIN 2.6 g/dl (3.4-5.0); BLOOD UREA NITROGEN 39.8 mg/dL (7-18); CALCIUM 10.9 mg/dL (8.5-10.1)
[2023-03-27 09:20] LABS: CREATININE 1.1 mg/dL (0.55-1.3)
[2023-03-27 09:22] LABS: BILIRUBIN,TOTAL 0.6 mg/dL (0.2-1); TOT PROT 6.8 g/dl (6.4-8.2)
[2023-03-27] MEDS: POLYETHYLENE GLYCOL (HEALTHYLAX) 3350 17 GM PACKET PO SCH (10:16)
[2023-03-27] MEDS: CINACALCET HCL 30 MG TAB (FP) PO SCH ×2 (10:18→21:49)
[2023-03-27] MEDS: METOPROLOL TARTRATE 25 MG TABLET (FP) PO SCH ×2 (10:18→21:49)
[2023-03-27] MEDS: ASPIRIN COATED 81 MG TABLET.EC PO SCH (10:18)
[2023-03-27] MEDS: amLODIPine BESYLATE 5 MG TABLET (FP) PO SCH (10:18)
[2023-03-27] MEDS: POTASSIUM CHLORIDE TABS 10 MEQ TABLET.ER (FP) PO SCH ×3 (10:19→21:49)
[2023-03-27] MEDS: FUROSEMIDE 40 MG/4 ML INJECTABLE VIAL IVPUSH SCH (10:23)
[2023-03-27] MEDS: HEPARIN NA (PORCINE) 5,000 UNITS/ML 1ML VIAL SQ SCH ×2 (10:25→21:49)
[2023-03-27] MEDS: DEXTROSE 5%-WATER - 1,000 ML IV SCH (10:29)
[2023-03-27 17:34] LABS: ARTERIAL BLD GAS O2 SATURATION 88.1 % (95-98); ARTERIAL BLOOD GAS BASE EXCESS 2.2 mmol/L (-2-2); ARTERIAL BLOOD GAS PO2 52.2 mmHg (80-100); ARTERIAL BLOOD GAS pH 7.436 (7.350-7.450)
[2023-03-27 17:42] LABS: ALLENS TEST POSITIVE
[2023-03-27] MEDS: MELATONIN 1 MG TABLET PO SCH (21:49)
[2023-03-28] MEDS: LEVALBUTEROL HCL 0.31 MG/3 ML VIAL.NEB IH SCH ×3 (07:53→20:32)
[2023-03-28 08:08] LABS: URINE APPEARANCE CLEAR; URINE BILIRUBIN NEGATIVE (NEGATIVE); URINE COLOR YELLOW; URINE GLUCOSE (UA) NEGATIVE (NEGATIVE); URINE KETONE NEGATIVE (NEGATIVE); URINE LEUK ESTERASE NEGATIVE (NEGATIVE); URINE NITRITE NEGATIVE (NEGATIVE); URINE PROTEIN NEGATIVE (NEGATIVE)
[2023-03-28 09:17] LABS: HEMATOCRIT 47.7 % (32.4-45.2); HEMOGLOBIN 16.2 GM/dL (10.7-15.3); MCH 32.1 pg (25.7-33.7); MCHC 33.9 g/dl (32.0-36.0); MEAN CELL VOLUME 94.5 fl (80-96); MEAN PLT VOLUME 7.9 fl (7.5-11.1); PLATELET COUNT 524 10^3/uL (134-434); RBC 5.05 M/mm3 (3.60-5.2); RDW 12.9 % (11.6-15.6); WHITE BLOOD COUNT 13.8 K/mm3 (4.0-10.0)
[2023-03-28 09:43] LABS: POTASSIUM 4.5 mmol/L (3.5-5.1)
[2023-03-28 09:51] LABS: BLOOD UREA NITROGEN 40.2 mg/dL (7-18)
[2023-03-28 09:52] LABS: ALBUMIN 2.6 g/dl (3.4-5.0)
[2023-03-28 09:56] LABS: BILIRUBIN,TOTAL 0.8 mg/dL (0.2-1)
[2023-03-28 09:59] LABS: TOT PROT 6.3 g/dl (6.4-8.2)
[2023-03-28] MEDS: POLYETHYLENE GLYCOL (HEALTHYLAX) 3350 17 GM PACKET PO SCH (10:12)
[2023-03-28] MEDS: HEPARIN NA (PORCINE) 5,000 UNITS/ML 1ML VIAL SQ SCH ×2 (10:12→21:52)
[2023-03-28] MEDS: POTASSIUM CHLORIDE TABS 10 MEQ TABLET.ER (FP) PO SCH ×2 (10:13→21:37)
[2023-03-28] MEDS: METOPROLOL TARTRATE 25 MG TABLET (FP) PO SCH ×2 (10:13→21:37)
[2023-03-28] MEDS: ASPIRIN COATED 81 MG TABLET.EC PO SCH (10:13)
[2023-03-28] MEDS: amLODIPine BESYLATE 5 MG TABLET (FP) PO SCH (10:13)
[2023-03-28] MEDS: FUROSEMIDE 40 MG/4 ML INJECTABLE VIAL IVPUSH SCH (10:13)
[2023-03-28] MEDS: CINACALCET HCL 30 MG TAB (FP) PO SCH ×2 (10:14→21:36)
[2023-03-28 10:17] LABS: ANISOCYTOSIS 0; HELMET CELLS 0; HOWELL-JOLLY BODIES 0; MACROCYTOSIS 0; OVALOCYTE 0; ROULEAU 0; SICKELED CELLS 0; TARGET CELLS 0; TEAR DROP CELLS 0; TOXIC GRANULATION 0
[2023-03-28] MEDS: DEXTROSE 5%-WATER - 1,000 ML IV SCH (10:18)
[2023-03-28] MEDS ORDERED: DEXTROSE 5%-WATER - 1,000 ML IV SCH (12:43)
[2023-03-28] MEDS: MELATONIN 1 MG TABLET PO SCH (21:36)
[2023-03-29 09:04] LABS: POTASSIUM 4.1 mmol/L (3.5-5.1)
[2023-03-29 09:12] LABS: ALBUMIN 2.4 g/dl (3.4-5.0); BLOOD UREA NITROGEN 32.9 mg/dL (7-18); CALCIUM 9.5 mg/dL (8.5-10.1)
[2023-03-29 09:17] LABS: TOT PROT 5.7 g/dl (6.4-8.2)
[2023-03-29] MEDS: POTASSIUM CHLORIDE TABS 10 MEQ TABLET.ER (FP) PO SCH (09:29)
[2023-03-29] MEDS: HEPARIN NA (PORCINE) 5,000 UNITS/ML 1ML VIAL SQ SCH (09:29)
[2023-03-29] MEDS: POLYETHYLENE GLYCOL (HEALTHYLAX) 3350 17 GM PACKET PO SCH (09:29)
[2023-03-29] MEDS: ASPIRIN COATED 81 MG TABLET.EC PO SCH (09:30)
[2023-03-29] MEDS: METOPROLOL TARTRATE 25 MG TABLET (FP) PO SCH (09:31)
[2023-03-29] MEDS: CINACALCET HCL 30 MG TAB (FP) PO SCH (09:31)
[2023-03-29] MEDS: amLODIPine BESYLATE 5 MG TABLET (FP) PO SCH (09:31)
[2023-03-29] MEDS: FUROSEMIDE 40 MG/4 ML INJECTABLE VIAL IVPUSH SCH (09:32)
[2023-03-29 10:10] VITALS: RESP 24
[2023-03-29 10:13] VITALS: BP 122/74; PULSE 84; TEMP 97.3
== END 2023-03-29 13:15 | DRG 193 ==
LOC: JER 17:00 → JERBED 19:46 → J4W 03-11 08:18
PROVIDERS: ADMIT Specialist; ATTEND Specialist
DX: J18.9 Pneumonia, unspecified organism (principal); I50.33 Acute on chronic diastolic (congestive) heart failure; J96.01 Acute respiratory failure with hypoxia; J96.02 Acute respiratory failure with hypercapnia; E87.20 Acidosis, unspecified; E87.0 Hyperosmolality and hypernatremia; I24.8 Other forms of acute ischemic heart disease; I25.10 Atherosclerotic heart disease of native coronary artery without angina pectoris; D72.829 Elevated white blood cell count, unspecified; I11.0 Hypertensive heart disease with heart failure; F03.90 Unspecified dementia, unspecified severity, without behavioral disturbance, psychotic disturbance, mood disturbance, and anxiety; E87.6 Hypokalemia; E83.52 Hypercalcemia; K59.00 Constipation, unspecified; F17.210 Nicotine dependence, cigarettes, uncomplicated
CPT/HCPCS: 0241U-QW; 36415; 36600; 71045-TC-FY; 80053; 81003; 82310; 82550; 82553; 82803; 83605; 83735; 83880; 83970; 84100; 84155; 84165; 84484; 85025; 85651; 86850; 86900; 86901; 87040; 87086; 87635; 87899; 93005; 93010; 93306-TC; 94660; 97162-GP; 99291; J1644